=== PATIENT | male | born 1975 | race Caucasian/White ===

== ENCOUNTER 2022-04-05 01:59 | Inpatient (IN) | payer OTHER ==
[~2022-04-05] VITALS: Ht 182.9 cm; Wt 95.3 kg
[2022-04-05 02:16] LABS: BASOPHIL 0.5 % (0-2); EOSINOPHIL 2.6 % (0-5); HCT 41.8 % (42.0-52.0); HGB 13.7 g/dl (13.2-18.0); LYMPHOCYTE 47.9 % (15-48); MCHC 32.8 g/dL (32.0-36.0); MCV 85.5 fL (78.0-100.0); MONOCYTE 5.4 % (0-12); NEUTROPHIL 43.3 % (41-80); NRBC 0; PLT 378 K/uL (150-400); RBC 4.89 M/uL (4.70-6.00); RDW 12.3 % (11.5-14.0); WBC 14.7 K/uL (4.0-10.5)
[2022-04-05 02:42] LABS: ALBUMIN 3.6 g/dL (3.4-5.0); BILIRUBIN - TOTAL 0.5 mg/dL (0.2-1.0); CREATININE 0.75 mg/dL (0.67-1.17); GLOBULIN (CALCULATION) 4.1 g/dL; POTASSIUM 3.7 mmol/L (3.5-5.1); TOTAL PROTEIN 7.7 g/dL (6.4-8.2)
[2022-04-05 02:47] LABS: LACTIC ACID 2.8 mmol/L (0.4-1.9)
[2022-04-05 02:53] LABS: CORONAVIRUS 2019 SARS-COV-2 NEGATIVE (NEGATIVE); INFLUENZA A NAA NEGATIVE (NEGATIVE)
[2022-04-05 04:26] LABS: BILIRUBIN NEGATIVE (NEGATIVE); BLOOD NEGATIVE Ery/uL (NEGATIVE); CLARITY CLEAR (CLEAR); COLOR YELLOW (YELLOW); GLUCOSE (U) 3+ mg/dL (NORMAL); LEUKOCYTES NEGATIVE Leu/uL (NEGATIVE); NITRITE NEGATIVE (NEGATIVE); PROTEIN NEGATIVE (NEGATIVE); UROBILINOGEN 0.2 mg/dL (0.2-1.0)
[2022-04-05 04:55] LABS: CHOLESTEROL 224 mg/dL (<200); HDL 41 mg/dL (40-60); LDH 198 U/L (85-227); LDL - DIRECT 165 mg/dL (<100); TRIGLYCERIDES 143 mg/dL (<150)
[2022-04-06 04:47] LABS: BASOPHIL 0.2 % (0-2); EOSINOPHIL 0.8 % (0-5); HCT 37.2 % (42.0-52.0); HGB 12.4 g/dl (13.2-18.0); MCH 27.9 pg (25.0-31.0); MCHC 33.3 g/dL (32.0-36.0); MCV 83.6 fL (78.0-100.0); MONOCYTE 5.6 % (0-12); MPV 11.5 fL (6.0-9.5); NRBC 0; PLT 293 K/uL (150-400); RBC 4.45 M/uL (4.70-6.00); RDW 12.3 % (11.5-14.0); WBC 11.9 K/uL (4.0-10.5)
[2022-04-06 05:19] LABS: ALBUMIN 3.3 g/dL (3.4-5.0); BILIRUBIN - TOTAL 0.4 mg/dL (0.2-1.0); BUN/CREAT RATIO (CALC) 28.7 RATIO; CREATININE 0.87 mg/dL (0.67-1.17); GLOBULIN (CALCULATION) 3.8 g/dL; MAGNESIUM 2.4 mg/dL (1.8-2.4); POTASSIUM 3.9 mmol/L (3.5-5.1); TOTAL PROTEIN 7.1 g/dL (6.4-8.2)
--- NOTE | 2022-04-06 07:47 | NUR ---
PT TROP 524, CARDIOLOGY ORDER ECHO, AND DC METFORMIN. ORDER EKG AND TRANSFER TO [facility]
[2022-04-07 08:50] LABS: BUN/CREAT RATIO (CALC) 26.6 RATIO; CREATININE 0.79 mg/dL (0.67-1.17); POTASSIUM 4.1 mmol/L (3.5-5.1)
--- NOTE | 2022-04-07 09:59 | NUR ---
04/07/22 Mr. Crowder, his spouse and their 21 y/o daughter share a home together. 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 He does not have a PCP or insurance. A referral was made to the Resource Customer Support Analyst by [employer] - Mr. Crowder was enrolled in a [employer] program. He was educated to [facility], financial resources and [employer].
--- NOTE | 2022-04-07 11:57 | NUR ---
TRANSFERRED BY AMBULANCE TO [facility] SOLVENT RECOVERER. REPORT GIVEN TO Yvette AT [facility] AND TO EMS. 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
== END 2022-04-07 11:46 | disposition other institution (70) | DRG 280 ==
LOC: FER 01:59 → FTCU 03:44 → FICU 03:44 → FTCU 14:56
PROVIDERS: Allergy & Immunology Allergy; Internal Medicine; Internal Medicine Cardiovascular Disease; Nurse Practitioner; ADMIT Family Medicine
PROC: 5A09357 Assistance with Respiratory Ventilation, Less than 24 Consecutive Hours, Continuous Positive Airway Pressure (ICD-10-PCS; principal; 2022-04-05)
PROC: 5A09357 Assistance with Respiratory Ventilation, Less than 24 Consecutive Hours, Continuous Positive Airway Pressure (ICD-10-PCS; 2022-04-07)
DX: I11.0 Hypertensive heart disease with heart failure (principal); J96.01 Acute respiratory failure with hypoxia; I21.A1 Myocardial infarction type 2; J96.02 Acute respiratory failure with hypercapnia; R65.11 Systemic inflammatory response syndrome (SIRS) of non-infectious origin with acute organ dysfunction; J44.1 Chronic obstructive pulmonary disease with (acute) exacerbation; Z20.822 Contact with and (suspected) exposure to COVID-19; I50.9 Heart failure, unspecified; F17.210 Nicotine dependence, cigarettes, uncomplicated; E78.5 Hyperlipidemia, unspecified; E11.65 Type 2 diabetes mellitus with hyperglycemia; G47.33 Obstructive sleep apnea (adult) (pediatric); E66.3 Overweight; Z68.30 Body mass index [BMI] 30.0-30.9, adult; Z83.3 Family history of diabetes mellitus; Z82.49 Family history of ischemic heart disease and other diseases of the circulatory system; Z83.79 Family history of other diseases of the digestive system; Z28.310 Unvaccinated for COVID-19
CPT/HCPCS: 36415; 36600; 71045; 80048; 80053; 80061; 81003; 82803; 82962; 83036; 83605; 83615; 83735; 83880; 84145; 84484; 85025; 87040; 87081; 93005; 94010; 94640; 94660; 94667; 94668; 94762; C9113; J1100; J1650; J1940; J2020; J2543; J3010; J3475; J7030; U0002

== ENCOUNTER 2022-05-06 14:40 | Emergency (ER) | payer OTHER ==
[2022-05-06 17:31] LABS: BASOPHIL 0.5 % (0-2); EOSINOPHIL 3.2 % (0-5); HCT 39.4 % (42.0-52.0); HGB 12.9 g/dl (13.2-18.0); LYMPHOCYTE 24.6 % (15-48); MCH 27.6 pg (25.0-31.0); MCHC 32.7 g/dL (32.0-36.0); MCV 84.2 fL (78.0-100.0); MONOCYTE 4.6 % (0-12); MPV 10.5 fL (6.0-9.5); NEUTROPHIL 66.9 % (41-80); NRBC 0; PLT 354 K/uL (150-400); RBC 4.68 M/uL (4.70-6.00); RDW 12.8 % (11.5-14.0); WBC 10.2 K/uL (4.0-10.5)
[2022-05-06 17:36] LABS: INR 1.06 (0.9-1.2); PROTHROMBIN TIME 13.5 SECONDS (11.9-13.9); PTT 30.5 SECONDS (24.9-34.6)
[2022-05-06 17:37] LABS: D-DIMER 0.76 ug/mLFEU (0.00-0.41)
[2022-05-06 17:45] LABS: IRON % SATURATION 20.1 %SAT (20-50)
[2022-05-06 17:46] LABS: LACTIC ACID 1.5 mmol/L (0.4-1.9)
[2022-05-06 17:57] LABS: ALBUMIN 3.1 g/dL (3.4-5.0); ALKALINE PHOSHATASE 108 U/L (46-116); ALT 38 U/L (16-63); AST 20 U/L (15-37); BILIRUBIN - TOTAL 0.3 mg/dL (0.2-1.0); BUN 20 mg/dL (7-18); BUN/CREAT RATIO (CALC) 20.4 RATIO; CHLORIDE 100 mmol/L (98-107); CO2 (BICARBONATE) 32 mmol/L (21-32); CREATININE 0.98 mg/dL (0.67-1.17); GLUCOSE 149 mg/dL (74-106); POTASSIUM 4.4 mmol/L (3.5-5.1); TOTAL PROTEIN 7.1 g/dL (6.4-8.2)
[2022-05-06 17:57] LABS: BILIRUBIN NEGATIVE (NEGATIVE); BLOOD NEGATIVE Ery/uL (NEGATIVE); CLARITY CLEAR (CLEAR); COLOR YELLOW (YELLOW); GLUCOSE (U) NORMAL (NORMAL); LEUKOCYTES NEGATIVE Leu/uL (NEGATIVE); NITRITE NEGATIVE (NEGATIVE); PROTEIN NEGATIVE (NEGATIVE); SPECIFIC GRAVITY 1.025 (1.001-1.030)
[2022-05-06 17:59] LABS: C-REACTIVE PROTEIN < 0.20 mg/dL (<=0.90)
== END 2022-05-06 20:57 | disposition home or self-care (01) ==
LOC: FER 14:40
PROVIDERS: Emergency Medicine
DX: R55 Syncope and collapse (principal); Z28.310 Unvaccinated for COVID-19
CPT/HCPCS: 36415; 71045; 71275; 80053; 81003; 82728; 83540; 83550; 83605; 83735; 83880; 84145; 84439; 84443; 84484; 85025; 85379; 85610; 85730; 86140; 93005; J7030; Q9967

== ENCOUNTER 2022-07-02 23:08 | Day surgery (SDCO) | payer OTHER ==
[~2022-07-02] VITALS: Ht 182.9 cm; Wt 92.3 kg
[2022-07-02 23:45] LABS: BASOPHIL 0.2 % (0-2); EOSINOPHIL 0 % (0-5); HCT 39.7 % (42.0-52.0); HGB 13.7 g/dl (13.2-18.0); MCH 28.1 pg (25.0-31.0); MCHC 34.5 g/dL (32.0-36.0); MCV 81.5 fL (78.0-100.0); MONOCYTE 5.2 % (0-12); MPV 10.8 fL (6.0-9.5); NEUTROPHIL 88.9 % (41-80); NRBC 0; PLT 301 K/uL (150-400); RBC 4.87 M/uL (4.70-6.00); RDW 13.6 % (11.5-14.0)
[2022-07-02 23:57] LABS: BILIRUBIN 1+ mg/dL (NEGATIVE); BLOOD NEGATIVE Ery/uL (NEGATIVE); CLARITY CLEAR (CLEAR); COLOR YELLOW (YELLOW); GLUCOSE (U) TRACE mg/dL (NORMAL); LEUKOCYTES NEGATIVE Leu/uL (NEGATIVE); NITRITE NEGATIVE (NEGATIVE); PROTEIN 2+ mg/dL (NEGATIVE); SPECIFIC GRAVITY >=1.030 (1.001-1.030)
[2022-07-02 23:58] LABS: INR 1.25 (0.9-1.2); PROTHROMBIN TIME 15.3 SECONDS (11.9-13.9); PTT 35.4 SECONDS (24.9-34.6); WBC 24.4 K/uL (4.0-10.5)
[2022-07-03 00:02] LABS: ALBUMIN 3.2 g/dL (3.4-5.0); BUN/CREAT RATIO (CALC) 28.2 RATIO; CREATININE 0.78 mg/dL (0.67-1.17); GLOBULIN (CALCULATION) 4.9 g/dL; POTASSIUM 3.9 mmol/L (3.5-5.1); TOTAL PROTEIN 8.1 g/dL (6.4-8.2)
[2022-07-03 00:13] LABS: BACTERIA 1+
[2022-07-03 00:14] LABS: MUCOUS MODERATE
[2022-07-03 01:10] LABS: CORONAVIRUS 2019 SARS-COV-2 NEGATIVE (NEGATIVE); INFLUENZA A NAA NEGATIVE (NEGATIVE)
[2022-07-03] MEDS ORDERED: NORCO 5-325 TA1 EACH PO (05:06)
[2022-07-03] MEDS ORDERED: AMIODARONE HCL200 MG PO (05:07)
[2022-07-03] MEDS ORDERED: SENNA-DOCUSATE1 EACH PO (05:08)
[2022-07-03] MEDS ORDERED: LANTUS **100 UNITS/ SC (05:09)
[2022-07-03] MEDS ORDERED: GLUCOSE4 GM PO (05:09)
[2022-07-03] MEDS ORDERED: LOPRESSOR25 MG PO (05:10)
[2022-07-03] MEDS ORDERED: METFORMIN HCL500 MG PO (05:10)
[2022-07-03] MEDS ORDERED: ASPIRIN325 MG PO (05:10)
[2022-07-03] MEDS ORDERED: LIPITOR40 MG PO (05:11)
[2022-07-03] MEDS ORDERED: LASIX20 MG PO (05:11)
[2022-07-03] MEDS ORDERED: PROTONIX 40MG T40 MG PO (05:11)
[2022-07-03] MEDS ORDERED: ZESTRIL5 MG PO (05:11)
[2022-07-03] MEDS ORDERED: KLOR-CON M2020 MEQ PO (05:12)
[2022-07-03 06:14] LABS: BASOPHIL 0.1 % (0-2); EOSINOPHIL 0 % (0-5); HCT 33.1 % (42.0-52.0); HGB 11.2 g/dl (13.2-18.0); LYMPHOCYTE 7.9 % (15-48); MCH 27.9 pg (25.0-31.0); MCHC 33.8 g/dL (32.0-36.0); MCV 82.5 fL (78.0-100.0); MPV 11.1 fL (6.0-9.5); NEUTROPHIL 84.2 % (41-80); NRBC 0; PLT 238 K/uL (150-400); RBC 4.01 M/uL (4.70-6.00); RDW 13.8 % (11.5-14.0)
[2022-07-03 06:25] LABS: WBC 20.4 K/uL (4.0-10.5)
[2022-07-03 06:51] LABS: BUN/CREAT RATIO (CALC) 26.6 RATIO; CREATININE 0.79 mg/dL (0.67-1.17); POTASSIUM 4.1 mmol/L (3.5-5.1)
== END 2022-07-03 19:00 | disposition other institution (70) ==
LOC: FER 23:08 → FMS 07-03 01:45 → FTCU 07-03 01:45
PROVIDERS: Internal Medicine; Nurse Practitioner; ADMIT Internal Medicine
DX: K81.0 Acute cholecystitis (principal); K52.9 Noninfective gastroenteritis and colitis, unspecified; I25.10 Atherosclerotic heart disease of native coronary artery without angina pectoris; I11.0 Hypertensive heart disease with heart failure; I50.40 Unspecified combined systolic (congestive) and diastolic (congestive) heart failure; E11.40 Type 2 diabetes mellitus with diabetic neuropathy, unspecified; J43.9 Emphysema, unspecified; I25.5 Ischemic cardiomyopathy; I25.2 Old myocardial infarction; Z95.810 Presence of automatic (implantable) cardiac defibrillator; Z95.1 Presence of aortocoronary bypass graft; Z79.82 Long term (current) use of aspirin; Z87.891 Personal history of nicotine dependence
CPT/HCPCS: 36415; 76705; 80048; 80053; 81001; 82009; 83036; 83605; 83690; 84145; 84484; 85025; 85610; 85730; 87040; 87088; 93005; 94010; 94760; G0378; J1170; J1885; J1940; J2405; J2543; J7120; U0002